=== PATIENT | male | born 1985 | race Caucasian/White ===

== ENCOUNTER 2019-02-11 14:06 | Emergency (ER) | payer MEDICAID, OTHER ==
[2019-02-11] MEDS ORDERED: Ondansetron 4 MG/2 ML SDV IVPUSH ONE (14:37)
[2019-02-11] MEDS ORDERED: HYDROmorphone 1 MG/ML Syringe IVPUSH ONE ×3 (14:37→16:59)
--- NOTE | 2019-02-11 14:38 | EDM.PDOC ---
ED HPI GENERAL MEDICAL PROBLEM - General Chief Complaint: Laceration Stated Complaint: LEFT FINGERS LACTERACTIONS Time Seen by Provider: 02/11/19 14:38 Source of Information: Reports: Patient History Limitations: Reports: No Limitations - History of Present Illness INITIAL COMMENTS - FREE TEXT/NARRATIVE: pt arrived with pain in the left hand and sig injury from a table saw. He has the index finger hanging from the proximal pp joint. He has injury at the tip of the thumb there is no bone involvement on the thumb. Onset: Today, Sudden Duration: Hour(s): Location: Reports: Upper Extremity, Left Associated Symptoms: Reports: No Other Symptoms Left Hand Pain Score (Numeric/FACES): 8 - Related Data Allergies Allergy/AdvReac Type Severity Reaction Status Date / Time No Known Allergies Allergy Verified 02/11/19 14:36 Home Meds: Home Meds NK [No Known Home Meds] 02/22/15 [History] Past Medical History Other Musculoskeletal History: Fracture to back, mid-back. ED ROS GENERAL - Review of Systems Review Of Systems: See Below Constitutional: Reports: No Symptoms HEENT: Reports: No Symptoms Respiratory: Reports: No Symptoms Cardiovascular: Reports: No Symptoms Endocrine: Reports: No Symptoms GI/Abdominal: Reports: No Symptoms : Reports: No Symptoms Musculoskeletal: Reports: Other (pt has a laceration of fifth index finger he has the finger just hanging the bone is involved and there is a spirally injury to the bone. The tip of the thumb is involved but not bone involvement, ) Skin: Reports: No Symptoms Neurological: Reports: No Symptoms Psychiatric: Reports: Anxiety ED EXAM, SKIN/RASH Exam: See Below Text/Narrative:: pt had a skill saw accident and he has a near amputation of his left index finger. He has a soft tissue laceration of the tip of the thumb. Exam Limited By: No Limitations General Appearance: Alert Extremities: Other (pt has a near amputation of the left index finger at the knuckle level The tip does still remain pink. He has a fracture which does spiral up distally. He was given a tetanus booster. He was given 2 granms of anicef. He had fair pain control with 3 mg of dilaudid, He was placed in a wet to dry dressing. [facility] was contacted because of their capability to do microsurgery ) Neurological: Alert, Oriented, Normal Cognition Psychiatric: Normal Affect Location, Skin: Upper Extremity, Left Course - Vital Signs Last Recorded V/S: Last Vital Signs Temp 34.5 C L 02/11/19 17:18 Pulse 68 02/11/19 17:18 Resp 15 02/11/19 17:18 BP 103/59 L 02/11/19 17:18 Pulse Ox 100 02/11/19 17:18 - Orders/Labs/Meds Meds: Medications Discontinued Medications Generic Name Dose Route Start Last Admin Trade Name Alberto PRN Reason Stop Dose Admin Diphtheria/Tetanus/Acell Pertussis 0.5 ml 02/11/19 16:57 02/11/19 17:03 Adacel IM 02/11/19 16:58 0.5 ml .ONCE ONE Administration Hydromorphone HCl 1 mg 02/11/19 14:37 02/11/19 14:42 Dilaudid IVPUSH 02/11/19 14:38 1 mg ONETIME ONE Administration Hydromorphone HCl 1 mg 02/11/19 15:13 02/11/19 15:19 Dilaudid IVPUSH 02/11/19 15:14 1 mg ONETIME ONE Administration Hydromorphone HCl 1 mg 02/11/19 16:59 02/11/19 17:04 Dilaudid IVPUSH 02/11/19 17:00 1 mg ONETIME ONE Administration Hydromorphone HCl Confirm 02/11/19 17:01 Dilaudid Administered 02/11/19 17:02 Dose 1 mg .ROUTE .STK-MED ONE Cefazolin Sodium/Dextrose 2 gm 50 mls @ 100 mls/hr 02/11/19 14:58 02/11/19 15 :10 / Premix IV 02/11/19 15:27 100 mls/hr Q8H ONE Administration Ondansetron HCl 4 mg 02/11/19 14:37 02/11/19 14:42 Zofran IVPUSH 02/11/19 14:38 4 mg ONETIME ONE Administration Departure - Departure Time of Disposition: 17:09 Disposition: DC/Tfer to Acute Hospital 02 Condition: Fair Clinical Impression: Traumatic amputation of left index finger, Laceration of thumb - Discharge Information Referrals: PCP,None [Primary Care Provider] - Forms: ED Department Discharge Care Plan Goals: to [facility] by private car.-- accepted by Dr Daniel
[2019-02-11] MEDS ORDERED: ceFAZolin 2 GM in Premix Bag 1 BAG IV ONE (14:58)
--- NOTE | 2019-02-11 15:23 | CRLCR ---
HISTORY: Table saw accident COMPARISON: None available. FINDINGS: The left hand is examined with PA, lateral, and oblique views. There is an acute, comminuted, nondisplaced fracture of the radial aspect of the head of the 2nd proximal phalanx with an associated prominent flexion deformity of the 2nd PIP joint. There is moderate soft tissue swelling and laceration along the dorsal aspect of the joint, with no sign of radiopaque foreign body. The findings are consistent with transection of the extensor tendons of the 2nd PIP joint. The alignment of the 2nd DIP joint is anatomic. There is no sign of additional fracture or dislocation. The soft tissues elsewhere are normal in appearance without sign of radio-opaque foreign body. No significant degenerative disease is seen. IMPRESSION: Acute, comminuted, nondisplaced fracture of the radial aspect of the head of the 2nd proximal phalanx with moderate soft tissue swelling and laceration around the PIP joint. Flexion deformity of the 2nd PIP joint consistent with transsection of the extensor tendons of the 2nd PIP joint. No sign of any radiopaque foreign body. Dictated by Luis Ervin MD @ Feb 11 2019 3:18PM Signed by Dr. Luis Ervin @ Feb 11 2019 3:21PM
[2019-02-11] MEDS ORDERED: Diphtheria,Pertussis(Acell),Tetanus Vaccine 0.5 ML SDV IM ONE (16:57)
[2019-02-11] MEDS ORDERED: HYDROmorphone 1 MG/ML Syringe ONE (17:01)
[2019-02-11 17:19] VITALS: BP 103/59; PULSE 68
== END 2019-02-11 17:27 ==
LOC: JP.ED 14:06
DX: S68.111A Complete traumatic metacarpophalangeal amputation of left index finger, initial encounter (principal); Z23 Encounter for immunization; W27.0XXA Contact with workbench tool, initial encounter
CPT/HCPCS: 73130; 90471; 90715; 96365; 96375; 96376; 99284; J0690; J1170; J2405